=== PATIENT | male | born 1950 | race Caucasian/White ===

== ENCOUNTER → 2016-08-02 | Outpatient (CLI) | payer MEDICARE, OTHER ==
[~2016-08-02] VITALS: Ht 185.4 cm; Wt 76.2 kg
== END ==
LOC: OPSV 13:00
DX: E88.01 Alpha-1-antitrypsin deficiency (principal)
CPT/HCPCS: 96365; J0256

== ENCOUNTER → 2016-08-09 | Outpatient (CLI) | payer MEDICARE, SELFPAY ==
[~2016-08-09] VITALS: Ht 185.4 cm; Wt 76.2 kg
== END ==
LOC: OPSV 10:00
DX: E88.01 Alpha-1-antitrypsin deficiency (principal); Z88.0 Allergy status to penicillin
CPT/HCPCS: 96365; J0256

== ENCOUNTER → 2016-08-16 | Outpatient (CLI) | payer MEDICARE, SELFPAY ==
[~2016-08-16] VITALS: Ht 185.4 cm; Wt 76.2 kg
== END ==
LOC: OPSV 12:43
DX: E88.01 Alpha-1-antitrypsin deficiency (principal)
CPT/HCPCS: 96365; J0256

== ENCOUNTER → 2016-08-23 | Outpatient (CLI) | payer MEDICARE, SELFPAY ==
[~2016-08-23] VITALS: Ht 185.4 cm; Wt 76.2 kg
== END ==
LOC: OPSV 12:43
DX: E88.01 Alpha-1-antitrypsin deficiency (principal)
CPT/HCPCS: 96365; J0256

== ENCOUNTER → 2016-08-30 | Outpatient (CLI) | payer MEDICARE, SELFPAY ==
[~2016-08-30] VITALS: Ht 185.4 cm; Wt 76.2 kg
== END ==
LOC: OPSV 11:00
DX: E88.01 Alpha-1-antitrypsin deficiency (principal)
CPT/HCPCS: 96365; J0256

== ENCOUNTER → 2016-09-06 | Outpatient (CLI) | payer MEDICARE, OTHER ==
[~2016-09-06] VITALS: Ht 185.4 cm; Wt 76.2 kg
== END ==
LOC: OPSV 12:27
DX: E88.01 Alpha-1-antitrypsin deficiency (principal)
CPT/HCPCS: 96365; J0256

== ENCOUNTER → 2016-09-13 | Outpatient (CLI) | payer MEDICARE, OTHER ==
[~2016-09-13] VITALS: Ht 185.4 cm; Wt 76.2 kg
== END ==
LOC: OPSV 12:30
DX: E88.01 Alpha-1-antitrypsin deficiency (principal)
CPT/HCPCS: 96365; J0256

== ENCOUNTER → 2016-09-20 | Outpatient (CLI) | payer MEDICARE, OTHER ==
[~2016-09-20] VITALS: Ht 185.4 cm; Wt 76.2 kg
== END ==
LOC: OPSV 12:24
DX: E88.01 Alpha-1-antitrypsin deficiency (principal)
CPT/HCPCS: 96365; J0256

== ENCOUNTER → 2016-09-27 | Outpatient (CLI) | payer MEDICARE, OTHER ==
[~2016-09-27] VITALS: Ht 185.4 cm; Wt 76.2 kg
== END ==
LOC: OPSV 10:11
DX: E88.01 Alpha-1-antitrypsin deficiency (principal)
CPT/HCPCS: 96365; J0256

== ENCOUNTER → 2016-10-04 | Outpatient (CLI) | payer OTHER ==
[~2016-10-04] VITALS: Ht 185.4 cm; Wt 76.2 kg
== END ==
LOC: OPSV 10-01 10:00
DX: E88.01 Alpha-1-antitrypsin deficiency (principal)
CPT/HCPCS: 96365; J0256

== ENCOUNTER → 2016-10-11 | Outpatient (CLI) | payer OTHER ==
[~2016-10-11] VITALS: Ht 185.4 cm; Wt 76.2 kg
== END ==
LOC: OPSV 12:00
DX: E88.01 Alpha-1-antitrypsin deficiency (principal)
CPT/HCPCS: 96365; J0256

== ENCOUNTER → 2016-10-18 | Outpatient (CLI) | payer OTHER ==
[~2016-10-18] VITALS: Ht 185.4 cm; Wt 76.2 kg
[2016-10-18 12:18] LABS: HEMOGLOBIN 15.6 gm/dl (14.0-17.5); RED BLOOD COUNT 4.76 M/UL (4.20-5.50); WHITE BLOOD COUNT 9.8 K/UL (4.5-11.0)
== END ==
LOC: OPSV 11:33
PROVIDERS: Nurse Practitioner Family
DX: Z12.5 Encounter for screening for malignant neoplasm of prostate (principal); I10 Essential (primary) hypertension; N40.0 Benign prostatic hyperplasia without lower urinary tract symptoms; E88.01 Alpha-1-antitrypsin deficiency
CPT/HCPCS: 80053; 80061; 84443; 85025; 96365; G0103; J0256

== ENCOUNTER → 2016-11-03 | Outpatient (CLI) | payer OTHER | LOC: OPSV 12:40 | DX: E88.01 Alpha-1-antitrypsin deficiency (principal) | CPT/HCPCS: 96365; J0256 ==

== ENCOUNTER → 2016-11-08 | Outpatient (CLI) | payer OTHER ==
[~2016-11-08] VITALS: Ht 185.4 cm; Wt 78.0 kg
== END ==
LOC: OPSV 12:54
DX: E88.01 Alpha-1-antitrypsin deficiency (principal)
CPT/HCPCS: 96365; J0256

== ENCOUNTER → 2016-11-15 | Outpatient (CLI) | payer OTHER ==
[~2016-11-15] VITALS: Ht 185.4 cm; Wt 78.0 kg
== END ==
LOC: OPSV 12:35
DX: E88.01 Alpha-1-antitrypsin deficiency (principal)
CPT/HCPCS: 96365; J0256

== ENCOUNTER → 2016-11-22 | Outpatient (CLI) | payer OTHER ==
[~2016-11-22] VITALS: Ht 185.4 cm; Wt 78.0 kg
== END ==
LOC: OPSV 12:30
DX: E88.01 Alpha-1-antitrypsin deficiency (principal)
CPT/HCPCS: 96365; J0256

== ENCOUNTER → 2016-11-29 | Outpatient (CLI) | payer OTHER ==
[~2016-11-29] VITALS: Ht 185.4 cm; Wt 78.0 kg
== END ==
LOC: OPSV 12:14
DX: E88.01 Alpha-1-antitrypsin deficiency (principal)
CPT/HCPCS: 96365; J0256

== ENCOUNTER → 2017-02-14 | Outpatient (CLI) | payer OTHER ==
[~2017-02-14] VITALS: Ht 185.4 cm; Wt 78.0 kg
== END ==
LOC: OPSV 12:23
DX: E88.01 Alpha-1-antitrypsin deficiency (principal)
CPT/HCPCS: 96365; J0256

== ENCOUNTER → 2017-02-21 | Outpatient (CLI) | payer OTHER ==
[~2017-02-21] VITALS: Ht 185.4 cm; Wt 78.0 kg
== END ==
LOC: OPSV 11:26
DX: E88.01 Alpha-1-antitrypsin deficiency (principal)
CPT/HCPCS: 96365; J0256

== ENCOUNTER → 2020-06-09 | Outpatient (CLI) | payer OTHER, SELFPAY ==
[~2020-06-09] VITALS: Ht 185.4 cm; Wt 78.0 kg
== END ==
LOC: OPSV 06-02 13:00
DX: E88.01 Alpha-1-antitrypsin deficiency (principal)
CPT/HCPCS: 96365; J0257

== ENCOUNTER → 2020-06-16 | Outpatient (CLI) | payer OTHER, SELFPAY ==
[~2020-06-16] VITALS: Ht 185.4 cm; Wt 78.0 kg
== END ==
LOC: OPSV 12:47
DX: E88.01 Alpha-1-antitrypsin deficiency (principal)
CPT/HCPCS: 96365; J0257

== ENCOUNTER → 2020-06-23 | Outpatient (CLI) | payer OTHER ==
[~2020-06-23] VITALS: Ht 185.4 cm; Wt 78.0 kg
== END ==
LOC: OPSV 12:05
DX: E88.01 Alpha-1-antitrypsin deficiency (principal)
CPT/HCPCS: 96365; J0257

== ENCOUNTER → 2020-06-30 | Outpatient (CLI) | payer OTHER ==
[~2020-06-30] VITALS: Ht 185.4 cm; Wt 78.0 kg
== END ==
LOC: OPSV 12:34
DX: E88.01 Alpha-1-antitrypsin deficiency (principal)
CPT/HCPCS: 96365; J0257

== ENCOUNTER → 2020-07-07 | Outpatient (CLI) | payer OTHER | LOC: OPSV 12:18 | DX: E88.01 Alpha-1-antitrypsin deficiency (principal) | CPT/HCPCS: 96365; J0257 ==

== ENCOUNTER → 2020-07-14 | Outpatient (CLI) | payer OTHER ==
[~2020-07-14] VITALS: Ht 185.4 cm; Wt 78.0 kg
== END ==
LOC: OPSV 12:27
DX: E88.01 Alpha-1-antitrypsin deficiency (principal)
CPT/HCPCS: 96365; J0257

== ENCOUNTER → 2020-07-28 | Outpatient (CLI) | payer OTHER ==
[~2020-07-28] VITALS: Ht 185.4 cm; Wt 78.0 kg
== END ==
LOC: OPSV 07-21 13:00
DX: E88.01 Alpha-1-antitrypsin deficiency (principal)
CPT/HCPCS: 96365; J0257

== ENCOUNTER → 2020-08-04 | Outpatient (CLI) | payer OTHER ==
[~2020-08-04] VITALS: Ht 185.4 cm; Wt 78.0 kg
== END ==
LOC: OPSV 11:58
DX: E88.01 Alpha-1-antitrypsin deficiency (principal)
CPT/HCPCS: 96365; J0257

== ENCOUNTER → 2020-08-18 | Outpatient (CLI) | payer OTHER ==
[~2020-08-18] VITALS: Ht 185.4 cm; Wt 78.0 kg
== END ==
LOC: OPSV 08-11 13:00
DX: E88.01 Alpha-1-antitrypsin deficiency (principal)
CPT/HCPCS: 96365; J0257

== ENCOUNTER → 2020-08-25 | Outpatient (CLI) | payer OTHER ==
[~2020-08-25] VITALS: Ht 185.4 cm; Wt 78.0 kg
== END ==
LOC: OPSV 12:33
DX: E88.01 Alpha-1-antitrypsin deficiency (principal)
CPT/HCPCS: 96365; J0257

== ENCOUNTER → 2020-09-01 | Outpatient (CLI) | payer OTHER ==
[~2020-09-01] VITALS: Ht 185.4 cm; Wt 78.0 kg
== END ==
LOC: OPSV 11:28
DX: E88.01 Alpha-1-antitrypsin deficiency (principal)
CPT/HCPCS: 96365; J0257

== ENCOUNTER → 2020-09-09 | Outpatient (CLI) | payer OTHER ==
[~2020-09-09] VITALS: Ht 185.4 cm; Wt 78.0 kg
== END ==
LOC: OPSV 10:25
DX: E88.01 Alpha-1-antitrypsin deficiency (principal)
CPT/HCPCS: 96365; J0257

== ENCOUNTER → 2020-09-15 | Outpatient (CLI) | payer OTHER | LOC: OPSV 12:52 | DX: E88.01 Alpha-1-antitrypsin deficiency (principal) | CPT/HCPCS: 96365; J0257 ==

== ENCOUNTER → 2020-09-22 | Outpatient (CLI) | payer OTHER ==
[~2020-09-22] VITALS: Ht 185.4 cm; Wt 78.0 kg
== END ==
LOC: OPSV 11:45
DX: E88.01 Alpha-1-antitrypsin deficiency (principal)
CPT/HCPCS: 96365; J0257

== ENCOUNTER → 2020-09-29 | Outpatient (CLI) | payer OTHER | LOC: OPSV 11:52 | DX: E88.01 Alpha-1-antitrypsin deficiency (principal) | CPT/HCPCS: 96365; J0257 ==

== ENCOUNTER → 2020-10-06 | Outpatient (CLI) | payer OTHER | LOC: OPSV 12:17 | DX: E88.01 Alpha-1-antitrypsin deficiency (principal) | CPT/HCPCS: 96365; J0257 ==

== ENCOUNTER → 2020-10-13 | Outpatient (CLI) | payer OTHER ==
[~2020-10-13] VITALS: Ht 185.4 cm; Wt 78.0 kg
== END ==
LOC: OPSV 13:00
DX: E88.01 Alpha-1-antitrypsin deficiency (principal)
CPT/HCPCS: 96365; J0257

== ENCOUNTER → 2020-10-20 | Outpatient (CLI) | payer OTHER ==
[~2020-10-20] VITALS: Ht 185.4 cm; Wt 78.0 kg
== END ==
LOC: OPSV 11:52
DX: E88.01 Alpha-1-antitrypsin deficiency (principal)
CPT/HCPCS: 96365; J0257

== ENCOUNTER → 2020-10-27 | Outpatient (CLI) | payer OTHER ==
[~2020-10-27] VITALS: Ht 185.4 cm; Wt 78.0 kg
== END ==
LOC: OPSV 12:38
DX: E88.01 Alpha-1-antitrypsin deficiency (principal)
CPT/HCPCS: 96365; J0257

== ENCOUNTER → 2020-11-04 | Outpatient (CLI) | payer OTHER ==
[~2020-11-04] VITALS: Ht 185.4 cm; Wt 78.0 kg
== END ==
LOC: OPSV 11:28
DX: E88.01 Alpha-1-antitrypsin deficiency (principal)
CPT/HCPCS: 96365; J0257

== ENCOUNTER → 2020-11-10 | Outpatient (CLI) | payer OTHER | LOC: OPSV 12:56 | DX: E88.01 Alpha-1-antitrypsin deficiency (principal) | CPT/HCPCS: 96365; J0257 ==

== ENCOUNTER → 2020-11-24 | Outpatient (CLI) | payer OTHER ==
[~2020-11-24] VITALS: Ht 185.4 cm; Wt 78.0 kg
== END ==
LOC: OPSV 12:46
DX: E88.01 Alpha-1-antitrypsin deficiency (principal)
CPT/HCPCS: 96365; J0257

== ENCOUNTER → 2020-12-01 | Outpatient (CLI) | payer OTHER ==
[~2020-12-01] VITALS: Ht 185.4 cm; Wt 78.0 kg
== END ==
LOC: OPSV 11:49
DX: E88.01 Alpha-1-antitrypsin deficiency (principal)
CPT/HCPCS: 96365; J0257

== ENCOUNTER → 2020-12-09 | Outpatient (CLI) | payer OTHER, SELFPAY ==
[~2020-12-09] VITALS: Ht 185.4 cm; Wt 78.0 kg
== END ==
LOC: OPSV 12:36
DX: E88.01 Alpha-1-antitrypsin deficiency (principal)
CPT/HCPCS: 96365; J0257

== ENCOUNTER → 2020-12-15 | Outpatient (CLI) | payer OTHER, SELFPAY | LOC: OPSV 13:00 | DX: E88.01 Alpha-1-antitrypsin deficiency (principal) | CPT/HCPCS: 96365; J0257 ==

== ENCOUNTER → 2020-12-29 | Outpatient (CLI) | payer OTHER ==
[~2020-12-29] VITALS: Ht 185.4 cm; Wt 78.0 kg
== END ==
LOC: OPSV 12:22
DX: E88.01 Alpha-1-antitrypsin deficiency (principal)
CPT/HCPCS: 96365; J0257

== ENCOUNTER → 2021-01-27 | Outpatient (CLI) | payer OTHER ==
[~2021-01-27] VITALS: Ht 185.4 cm; Wt 78.0 kg
== END ==
LOC: OPSV 13:00
DX: N49.3 Fournier gangrene (principal)
CPT/HCPCS: 96365; J0257

== ENCOUNTER → 2021-02-10 | Outpatient (CLI) | payer OTHER, MEDICAID ==
[~2021-02-10] VITALS: Ht 185.4 cm; Wt 78.0 kg
== END ==
LOC: OPSV 02-03 13:00
DX: E88.01 Alpha-1-antitrypsin deficiency (principal)
CPT/HCPCS: 96365; J0257

== ENCOUNTER → 2021-02-16 | Outpatient (CLI) | payer OTHER ==
[~2021-02-16] VITALS: Ht 185.4 cm; Wt 78.0 kg
== END ==
LOC: OPSV 12:00
DX: E88.01 Alpha-1-antitrypsin deficiency (principal)
CPT/HCPCS: 96365; J0257

== ENCOUNTER → 2021-02-23 | Outpatient (CLI) | payer OTHER ==
[~2021-02-23] VITALS: Ht 185.4 cm; Wt 78.0 kg
== END ==
LOC: OPSV 13:00
DX: E88.01 Alpha-1-antitrypsin deficiency (principal)
CPT/HCPCS: 96365; J0257

== ENCOUNTER → 2021-03-02 | Outpatient (CLI) | payer OTHER ==
[~2021-03-02] VITALS: Ht 185.4 cm; Wt 78.0 kg
== END ==
LOC: OPSV 12:30
DX: E88.01 Alpha-1-antitrypsin deficiency (principal)
CPT/HCPCS: 96365; J0257

== ENCOUNTER → 2021-03-09 | Outpatient (CLI) | payer OTHER ==
[~2021-03-09] VITALS: Ht 185.4 cm; Wt 78.0 kg
== END ==
LOC: OPSV 12:49
DX: E88.01 Alpha-1-antitrypsin deficiency (principal)
CPT/HCPCS: 96365; J0257

== ENCOUNTER → 2021-03-16 | Outpatient (CLI) | payer OTHER ==
[~2021-03-16] VITALS: Ht 185.4 cm; Wt 78.0 kg
== END ==
LOC: OPSV 12:33
DX: E88.01 Alpha-1-antitrypsin deficiency (principal)
CPT/HCPCS: 96365; J0257

== ENCOUNTER → 2021-03-23 | Outpatient (CLI) | payer OTHER ==
[~2021-03-23] MED LIST: AMLODIPINE BESYL5 MG PO; EFUDEX 5% CREAM40 GM EXT; FLOMAX 0.4 MG0.4 MG PO; IPRAT-ALBUT 0.5-3 ML INH; LEVOFLOXACIN500 MG PO; PERCOCET 5-3251 EACH PO; SPIRIVA RESPIMAT4 GM INH; SYMBICORT 16010.2 GM INH
== END ==
LOC: OPSV 13:00
DX: E88.01 Alpha-1-antitrypsin deficiency (principal)
CPT/HCPCS: 96365; J0257

== ENCOUNTER 2021-03-27 13:17 | Inpatient (IN) | payer OTHER ==
[~2021-03-27] VITALS: Ht 185.4 cm; Wt 72.6 kg
[2021-03-27 14:46] LABS: RED BLOOD COUNT 4.95 M/UL (4.20-5.50); WHITE BLOOD COUNT 16.7 K/UL (4.5-11.0)
[2021-03-27] MEDS ORDERED: SYMBICORT 16010.2 GM INH (22:30)
[2021-03-27] MEDS ORDERED: AMLODIPINE BESYL5 MG PO (22:31)
[2021-03-27] MEDS ORDERED: EFUDEX 5% CREAM40 GM EXT (22:32)
[2021-03-27] MEDS ORDERED: SPIRIVA RESPIMAT4 GM INH (22:34)
[2021-03-27] MEDS ORDERED: IPRAT-ALBUT 0.5-3 ML INH (22:34)
[2021-03-27] MEDS ORDERED: FLOMAX 0.4 MG0.4 MG PO (22:35)
[2021-03-27] MEDS ORDERED: PERCOCET 5-3251 EACH PO (22:39)
[2021-03-28 02:25] LABS: WHITE BLOOD COUNT 14.7 K/UL (4.5-11.0)
[2021-03-28 02:27] LABS: RED BLOOD COUNT 4.32 M/UL (4.20-5.50)
[2021-03-29 07:15] LABS: HEMOGLOBIN 13.4 gm/dl (14.0-17.5); RED BLOOD COUNT 4.16 M/UL (4.20-5.50)
[2021-03-29 07:18] LABS: WHITE BLOOD COUNT 8.7 K/UL (4.5-11.0)
[2021-03-30 04:14] LABS: HEMOGLOBIN 13.4 gm/dl (14.0-17.5); RED BLOOD COUNT 4.2 M/UL (4.20-5.50); WHITE BLOOD COUNT 7.7 K/UL (4.5-11.0)
[2021-03-30] MEDS ORDERED: LEVOFLOXACIN500 MG PO (10:43)
== END 2021-03-30 12:06 | disposition home or self-care (01) | DRG 698 ==
LOC: ER1 13:17 → CDU 18:54 → M/S 20:20
PROVIDERS: Physician Assistant; Student in an Organized Health Care Education/Training Program; ADMIT Internal Medicine
DX: T83.518A Infection and inflammatory reaction due to other urinary catheter, initial encounter (principal); A41.9 Sepsis, unspecified organism; Z20.822 Contact with and (suspected) exposure to COVID-19; N39.0 Urinary tract infection, site not specified; E87.2 Acidosis; E87.3 Alkalosis; N12 Tubulo-interstitial nephritis, not specified as acute or chronic; J43.9 Emphysema, unspecified; E88.01 Alpha-1-antitrypsin deficiency; I12.9 Hypertensive chronic kidney disease with stage 1 through stage 4 chronic kidney disease, or unspecified chronic kidney disease; N18.30 Chronic kidney disease, stage 3 unspecified; Y84.6 Urinary catheterization as the cause of abnormal reaction of the patient, or of later complication, without mention of misadventure at the time of the procedure; K44.9 Diaphragmatic hernia without obstruction or gangrene; Z83.3 Family history of diabetes mellitus; Z82.49 Family history of ischemic heart disease and other diseases of the circulatory system; Z87.891 Personal history of nicotine dependence; Z88.0 Allergy status to penicillin
CPT/HCPCS: 36415; 36600; 71045; 80048; 80053; 81001; 82550; 82553; 82803; 83605; 83735; 83874; 84484; 85025; 85379; 87040; 87086; 94640; 94664; 94760; 96374; 99285; J0257; J0696; J1335; J2405; J7030; Q9967; U0002

== ENCOUNTER → 2021-04-13 | Outpatient (CLI) | payer OTHER ==
[~2021-04-13] VITALS: Ht 185.4 cm; Wt 78.0 kg
== END ==
LOC: OPSV 12:30
DX: E88.01 Alpha-1-antitrypsin deficiency (principal)
CPT/HCPCS: 96365; J0257

== ENCOUNTER → 2021-04-20 | Outpatient (CLI) | payer OTHER ==
[~2021-04-20] VITALS: Ht 185.4 cm; Wt 78.0 kg
== END ==
LOC: OPSV 04-06 13:00
DX: E88.01 Alpha-1-antitrypsin deficiency (principal)
CPT/HCPCS: 96365; J0257

== ENCOUNTER → 2021-04-27 | Outpatient (CLI) | payer OTHER ==
[~2021-04-27] VITALS: Ht 185.4 cm; Wt 78.0 kg
== END ==
LOC: OPSV 11:24
DX: E88.01 Alpha-1-antitrypsin deficiency (principal)
CPT/HCPCS: 96365; J0257

== ENCOUNTER → 2021-05-04 | Outpatient (CLI) | payer OTHER ==
[~2021-05-04] VITALS: Ht 185.4 cm; Wt 78.0 kg
== END ==
LOC: OPSV 13:00
DX: E88.01 Alpha-1-antitrypsin deficiency (principal)
CPT/HCPCS: 96365; J0257

== ENCOUNTER → 2021-05-11 | Outpatient (CLI) | payer OTHER ==
[~2021-05-11] VITALS: Ht 185.4 cm; Wt 78.0 kg
== END ==
LOC: OPSV 12:39
DX: E88.01 Alpha-1-antitrypsin deficiency (principal)
CPT/HCPCS: 96365; J0257

== ENCOUNTER → 2021-05-18 | Outpatient (CLI) | payer OTHER ==
[~2021-05-18] VITALS: Ht 185.4 cm; Wt 78.0 kg
== END ==
LOC: OPSV 12:58
DX: E88.01 Alpha-1-antitrypsin deficiency (principal)
CPT/HCPCS: 96365; J0257

== ENCOUNTER → 2021-05-25 | Outpatient (CLI) | payer OTHER ==
[~2021-05-25] VITALS: Ht 185.4 cm; Wt 78.0 kg
== END ==
LOC: OPSV 12:45
DX: E88.01 Alpha-1-antitrypsin deficiency (principal)
CPT/HCPCS: 96365; J0257

== ENCOUNTER → 2021-06-01 | Outpatient (CLI) | payer OTHER ==
[~2021-06-01] VITALS: Ht 185.4 cm; Wt 78.0 kg
== END ==
LOC: OPSV 12:28
DX: E88.01 Alpha-1-antitrypsin deficiency (principal)
CPT/HCPCS: 96365; J0257

== ENCOUNTER → 2021-06-08 | Outpatient (CLI) | payer OTHER ==
[~2021-06-08] VITALS: Ht 185.4 cm; Wt 78.0 kg
== END ==
LOC: OPSV 12:25
DX: E88.01 Alpha-1-antitrypsin deficiency (principal)
CPT/HCPCS: 96365; J0257

== ENCOUNTER → 2021-06-16 | Outpatient (CLI) | payer OTHER | LOC: OPSV 06-15 13:00 | DX: E88.01 Alpha-1-antitrypsin deficiency (principal) | CPT/HCPCS: 96365; J0257 ==

== ENCOUNTER → 2021-06-23 | Outpatient (CLI) | payer OTHER ==
[~2021-06-23] VITALS: Ht 185.4 cm; Wt 78.0 kg
== END ==
LOC: OPSV 06-22 13:00
DX: E88.01 Alpha-1-antitrypsin deficiency (principal)
CPT/HCPCS: 96365; J0257

== ENCOUNTER → 2021-06-29 | Outpatient (CLI) | payer OTHER | LOC: OPSV 13:00 | DX: E88.01 Alpha-1-antitrypsin deficiency (principal) | CPT/HCPCS: 96365; J0257 ==

== ENCOUNTER → 2021-07-06 | Outpatient (CLI) | payer OTHER ==
[~2021-07-06] VITALS: Ht 185.4 cm; Wt 78.0 kg
== END ==
LOC: OPSV 12:52
DX: E88.01 Alpha-1-antitrypsin deficiency (principal)
CPT/HCPCS: 96365; J0257

== ENCOUNTER → 2021-07-15 | Outpatient (CLI) | payer OTHER ==
[~2021-07-15] VITALS: Ht 185.4 cm; Wt 78.0 kg
[2021-07-16 10:15] LABS: CREATININE, URINE 126.2 mg/dL (Not Estab.)
== END ==
LOC: OPSV 07-13 13:00
PROVIDERS: Internal Medicine Pulmonary Disease
DX: N18.9 Chronic kidney disease, unspecified (principal); E88.01 Alpha-1-antitrypsin deficiency
CPT/HCPCS: 81001; 82043; 82570; 84156; 96365; J0257

== ENCOUNTER → 2021-07-20 | Outpatient (CLI) | payer OTHER ==
[~2021-07-20] VITALS: Ht 185.4 cm; Wt 78.0 kg
== END ==
LOC: OPSV 11:08
PROVIDERS: Internal Medicine Nephrology
DX: E88.01 Alpha-1-antitrypsin deficiency (principal); N18.9 Chronic kidney disease, unspecified
CPT/HCPCS: 80053; 96365; J0257

== ENCOUNTER → 2021-07-28 | Outpatient (CLI) | payer OTHER ==
[~2021-07-28] VITALS: Ht 185.4 cm; Wt 78.0 kg
== END ==
LOC: OPSV 13:00
DX: E88.01 Alpha-1-antitrypsin deficiency (principal)
CPT/HCPCS: 96365; J0257

== ENCOUNTER → 2021-08-03 | Outpatient (CLI) | payer OTHER ==
[~2021-08-03] VITALS: Ht 185.4 cm; Wt 78.0 kg
== END ==
LOC: OPSV 12:01
DX: E88.01 Alpha-1-antitrypsin deficiency (principal)
CPT/HCPCS: 96365; J0257

== ENCOUNTER → 2021-08-10 | Outpatient (CLI) | payer OTHER ==
[~2021-08-10] VITALS: Ht 185.4 cm; Wt 78.0 kg
== END ==
LOC: OPSV 13:00
DX: E88.01 Alpha-1-antitrypsin deficiency (principal)
CPT/HCPCS: 96365; J0257

== ENCOUNTER → 2021-08-24 | Outpatient (CLI) | payer OTHER ==
[~2021-08-24] VITALS: Ht 185.4 cm; Wt 78.0 kg
== END ==
LOC: OPSV 12:17
DX: E88.01 Alpha-1-antitrypsin deficiency (principal)
CPT/HCPCS: 96365; J0257

== ENCOUNTER → 2021-09-22 | Outpatient (CLI) | payer OTHER ==
[~2021-09-22] VITALS: Ht 185.4 cm; Wt 78.0 kg
== END ==
LOC: OPSV 12:07
DX: E88.01 Alpha-1-antitrypsin deficiency (principal)
CPT/HCPCS: 96365; J0257

== ENCOUNTER → 2021-09-28 | Outpatient (CLI) | payer OTHER ==
[~2021-09-28] VITALS: Ht 185.4 cm; Wt 78.0 kg
== END ==
LOC: OPSV 13:00
DX: E88.01 Alpha-1-antitrypsin deficiency (principal)
CPT/HCPCS: 96365; J0257

== ENCOUNTER → 2021-10-05 | Outpatient (CLI) | payer OTHER | LOC: OPSV 12:14 | DX: E88.01 Alpha-1-antitrypsin deficiency (principal) | CPT/HCPCS: 96365; J0257 ==

== ENCOUNTER → 2021-10-12 | Outpatient (CLI) | payer OTHER ==
[~2021-10-12] VITALS: Ht 185.4 cm; Wt 78.0 kg
== END ==
LOC: OPSV 11:22
DX: E88.01 Alpha-1-antitrypsin deficiency (principal)
CPT/HCPCS: 96365; J0257

== ENCOUNTER → 2021-10-19 | Outpatient (CLI) | payer OTHER | LOC: OPSV 12:45 | DX: E88.01 Alpha-1-antitrypsin deficiency (principal) | CPT/HCPCS: 96365; J0257 ==

== ENCOUNTER → 2021-10-26 | Outpatient (CLI) | payer OTHER ==
[~2021-10-26] VITALS: Ht 185.4 cm; Wt 78.0 kg
== END ==
LOC: OPSV 12:14
DX: E88.01 Alpha-1-antitrypsin deficiency (principal)
CPT/HCPCS: 96365; J0257

== ENCOUNTER → 2021-11-03 | Outpatient (CLI) | payer OTHER | LOC: OPSV 12:42 | DX: E88.01 Alpha-1-antitrypsin deficiency (principal) | CPT/HCPCS: 96365; J0257 ==

== ENCOUNTER → 2021-11-09 | Outpatient (CLI) | payer OTHER | LOC: OPSV 12:23 | DX: E88.01 Alpha-1-antitrypsin deficiency (principal) | CPT/HCPCS: 96365; J0257 ==

== ENCOUNTER → 2021-11-23 | Outpatient (CLI) | payer OTHER | LOC: OPSV 12:01 | DX: E88.01 Alpha-1-antitrypsin deficiency (principal) | CPT/HCPCS: 96365; J0257 ==

== ENCOUNTER → 2021-11-30 | Outpatient (CLI) | payer OTHER ==
[~2021-11-30] VITALS: Ht 185.4 cm; Wt 78.0 kg
== END ==
LOC: OPSV 12:49
DX: E88.01 Alpha-1-antitrypsin deficiency (principal)
CPT/HCPCS: 96365; J0257

== ENCOUNTER → 2021-12-08 | Outpatient (CLI) | payer OTHER ==
[~2021-12-08] VITALS: Ht 185.4 cm; Wt 78.0 kg
== END ==
LOC: OPSV 13:00
DX: E88.01 Alpha-1-antitrypsin deficiency (principal)
CPT/HCPCS: 96365; J0257

== ENCOUNTER → 2021-12-14 | Outpatient (CLI) | payer OTHER | LOC: OPSV 13:00 | DX: E88.01 Alpha-1-antitrypsin deficiency (principal) | CPT/HCPCS: 96365; J0257 ==

== ENCOUNTER → 2021-12-21 | Outpatient (CLI) | payer OTHER | LOC: OPSV 13:00 | DX: E88.01 Alpha-1-antitrypsin deficiency (principal) | CPT/HCPCS: 96365; J0257 ==

== ENCOUNTER → 2021-12-29 | Outpatient (CLI) | payer OTHER ==
[~2021-12-29] VITALS: Ht 185.4 cm; Wt 78.0 kg
== END ==
LOC: OPSV 12-28 13:00
DX: E88.01 Alpha-1-antitrypsin deficiency (principal)
CPT/HCPCS: 96365; J0257

== ENCOUNTER → 2022-01-11 | Outpatient (CLI) | payer OTHER ==
[~2022-01-11] VITALS: Ht 185.4 cm; Wt 78.0 kg
== END ==
LOC: OPSV 13:00
DX: E88.01 Alpha-1-antitrypsin deficiency (principal)
CPT/HCPCS: 96365; J0257

== ENCOUNTER → 2022-01-18 | Outpatient (CLI) | payer OTHER | LOC: OPSV 12:54 | DX: E88.01 Alpha-1-antitrypsin deficiency (principal) | CPT/HCPCS: 96365; J0257 ==

== ENCOUNTER → 2022-01-25 | Outpatient (CLI) | payer OTHER ==
[~2022-01-25] VITALS: Ht 185.4 cm; Wt 74.8 kg
== END ==
LOC: OPSV 12:29
DX: E88.01 Alpha-1-antitrypsin deficiency (principal)
CPT/HCPCS: 96365; J0257

== ENCOUNTER → 2022-02-01 | Outpatient (CLI) | payer OTHER ==
[~2022-02-01] VITALS: Ht 185.4 cm; Wt 74.8 kg
== END ==
LOC: OPSV 13:00
DX: E88.01 Alpha-1-antitrypsin deficiency (principal)
CPT/HCPCS: 96365; J0257

== ENCOUNTER → 2022-02-09 | Outpatient (CLI) | payer OTHER ==
[~2022-02-09] VITALS: Ht 185.4 cm; Wt 74.8 kg
== END ==
LOC: OPSV 10:47
DX: E88.01 Alpha-1-antitrypsin deficiency (principal)
CPT/HCPCS: 96365; J0257

== ENCOUNTER → 2022-02-15 | Outpatient (CLI) | payer OTHER ==
[~2022-02-15] VITALS: Ht 185.4 cm; Wt 74.8 kg
== END ==
LOC: OPSV 13:00
DX: E88.01 Alpha-1-antitrypsin deficiency (principal)
CPT/HCPCS: 96365; J0257

== ENCOUNTER → 2022-02-22 | Outpatient (CLI) | payer OTHER ==
[~2022-02-22] VITALS: Ht 185.4 cm; Wt 74.8 kg
== END ==
LOC: OPSV 11:24
DX: E88.01 Alpha-1-antitrypsin deficiency (principal)
CPT/HCPCS: 96365; J0257

== ENCOUNTER → 2022-03-01 | Outpatient (CLI) | payer OTHER ==
[~2022-03-01] VITALS: Ht 185.4 cm; Wt 74.8 kg
== END ==
LOC: OPSV 13:00
DX: E88.01 Alpha-1-antitrypsin deficiency (principal)
CPT/HCPCS: 96365; J0257